=== PATIENT | female | born 1965 | race African-American/Black ===

== ENCOUNTER 2017-12-02 12:20 | Emergency (ER) | payer OTHER ==
[~2017-12-02] VITALS: Ht 144.8 cm; Wt 61.2 kg
[~2017-12-02 12:20] MED LIST: AMBIEN 10 MG TA10 MG PO; ATIVAN2 MG PO; PROAIR HFA8.5 GM IH; RESTORIL7.5 MG PO
[2017-12-02] MEDS ORDERED: COZAAR 50 MG TA50 M2 PO (12:30)
[2017-12-02] MEDS ORDERED: PREDNISONE 20 M20 MG PO (12:43)
[2017-12-02] MEDS ORDERED: TESSALON PERLE100 MG PO (12:43)
[2017-12-02] MEDS ORDERED: CLARITIN10 MG PO (12:43)
[2017-12-02] MEDS ORDERED: PROMETHAZINE V473 ML PO (12:43)
[2017-12-02] MEDS ORDERED: ACETAMINOPHEN-1 EAC1 PO (12:43)
[2017-12-02] MEDS ORDERED: ZPAK PO (12:43)
[2017-12-02 13:14] VITALS: BP 146/94
== END 2017-12-02 13:16 | disposition home or self-care (01) ==
LOC: M.ERS 12:20
DX: J20.9 Acute bronchitis, unspecified (principal); J45.909 Unspecified asthma, uncomplicated; I10 Essential (primary) hypertension; F41.9 Anxiety disorder, unspecified

== ENCOUNTER 2018-02-24 02:34 | Emergency (ER) | payer OTHER ==
[~2018-02-24] VITALS: Ht 147.3 cm; Wt 59.0 kg
[~2018-02-24 02:34] MED LIST changes: +ACETAMINOPHEN-1 EAC1 PO; +CLARITIN10 MG PO; +COZAAR 50 MG TA50 M2 PO; +PREDNISONE 20 M20 MG PO; +PROMETHAZINE V473 ML PO; +TESSALON PERLE100 MG PO; +ZPAK PO
[2018-02-24 02:38] VITALS: BP 190/117
[2018-02-24] MEDS ORDERED: IBUPROFEN 200200 M1 PO (02:43)
[2018-02-24] MEDS ORDERED: AMOXICILLIN 50500 M1 PO (03:09)
[2018-02-24] MEDS ORDERED: ACETAMINOPHEN-1 EAC1 PO (03:09)
== END 2018-02-24 03:16 | disposition home or self-care (01) ==
LOC: M.ERS 02:34
DX: K02.9 Dental caries, unspecified (principal); J45.909 Unspecified asthma, uncomplicated; I10 Essential (primary) hypertension

== ENCOUNTER 2019-03-21 09:44 | Inpatient (IN) | payer OTHER ==
[~2019-03-21] VITALS: Ht 144.8 cm; Wt 54.0 kg
--- NOTE | ~2019-03-21 | PROC ---
[address] [address] PROCEDURE REPORT Name: HARJEET GUAMAN Room: [address] IN M.R.#: [id number] Admission: 03/21/19 Attend Phys: Hilary Manzanares Discharge: Date of : 63 Report #: [id number] THIS REPORT FOR: //name// For GI report, please see the Provation report in Perceptive 7 content. By: 0643Medical Records Staff DIONNA /JAYJAY
[~2019-03-21 09:44] MED LIST changes: +AMOXICILLIN 50500 M1 PO; +COZAAR 50 MG TA50 M1 PO; -COZAAR 50 MG TA50 M2 PO; +IBUPROFEN 200200 M1 PO
[2019-03-21 09:53] VITALS: BP 197/136
[2019-03-21 10:40] LABS: ABSOLUTE EOSINOPHILS 0.2 thou/uL (0.0-0.7); ABSOLUTE LYMPHOCYTES 1.7 thou/uL (0.8-5.3); ABSOLUTE MONOCYTES 0.7 thou/uL (0.0-1.2); ABSOLUTE NEUTROPHILS 3.2 thou/uL (1.6-8.1); BASOPHILS 0.3 %; HEMATOCRIT 45.6 % (37.0-47.0); HEMOGLOBIN 15.2 gm/dL (12.0-15.0); LYMPHOCYTES 28.9 %; MCH 28.5 pg (26.0-34.0); MCHC 33.4 g/dL (28.0-37.0); MCV 85.2 fL (80.0-100.0); MONOCYTES 11.8 %; MPV 9.2 fl. (7.2-11.1); NUCLEATED RBCS 0 /100WBC; PLATELET COUNT* 314 thou/uL (150-400); RBC 5.35 mil/uL (4.20-5.00); RDW-CV 16.6 % (10.5-14.5); WBC 5.8 thou/uL (4.0-11.0)
[2019-03-21 10:46] LABS: CALCIUM 10.4 mg/dL (8.5-10.1); CREATININE 1.2 mg/dL (0.6-1.3); POTASSIUM 3.1 mmol/L (3.5-5.1)
[2019-03-21 10:51] LABS: ALBUMIN 4.8 g/dL (3.4-5.0); TOTAL BILIRUBIN 2.2 mg/dL (<0.1-1.0); TOTAL PROTEIN 9.8 g/dL (6.4-8.2)
[2019-03-21 12:11] LABS: URINE BILIRUBIN NEGATIVE (Negative); URINE BLOOD TRACE (Negative); URINE CLARITY CLEAR; URINE COLOR YELLOW; URINE GLUCOSE-RANDOM NEGATIVE (Negative); URINE KETONES NEGATIVE (Negative); URINE NITRITE-REFLEX NEGATIVE (Negative); URINE PROTEIN NEGATIVE (Negative)
[2019-03-21 12:13] LABS: URINE LEUKOCYTES-REFLEX 2+ (Negative)
[2019-03-21 12:20] LABS: BACTERIA-REFLEX 1-9 Few /HPF (None Seen); CASTS None Seen /LPF (None Seen); CRYSTALS None Seen /LPF (None Seen); MUCUS None Seen strn/LPF (None Seen); SQUAMOUS 4-10 Moderate /LPF (0-3); URINE RBC 0-2 Rare /HPF (0-2); URINE WBC-REFLEX 6-15 Few /HPF (0-5)
--- NOTE | 2019-03-21 16:55 | EKG ---
[place] [address] ELECTROCARDIOGRAM REPORT Name: HARJEET GUAMAN Room: [place] [address] ADM IN [facility]#: [id number] Admission: 03/21/19 Attend Phys: Hilary Manzanares Discharge: Date of : 63 Report #: [id number] THIS REPORT FOR: //name// ED Test Date: 2019-03-21 Test Time: 09:51:48 Pat Name: HARJEET GUAMAN Department: Room: [facility] Gender: F Hydrographer: [place] : 1965 Requested By: Riley Marcial Order Number: [id number] MD: Larry Partida Measurements Intervals [place] Rate: 115 P: 56 [place]: 114 QRS: 9 QRSD: 77 T: 47 QT: 322 QTc: 446 Interpretive Statements Sinus tachycardia Probable left atrial enlargement No previous ECG available for comparison Electronically Signed On 03-21-2019 16:55:33 CDT by Larry Partida [email or web address] <ELECTRONICALLY SIGNED> By: Larry Partida MD, [facility] 03/21/19 1655 0951 0 Larry Partida MD, FACC /EPI
[2019-03-21 22:30] VITALS: BP 186/116
[2019-03-21 22:45] VITALS: BP 208/105; BP 210/109
[2019-03-22] VITALS (11 sets, daily range): BP systolic 178–231; BP diastolic 100–130
[2019-03-22] MEDS ORDERED: SINGULAIR 10 MG10 MG PO (04:19)
[2019-03-22] MEDS ORDERED: ASMANEX110 MCG SPRAY (04:23)
[2019-03-22] MEDS ORDERED: TIZANIDINE HCL4 M1 PO (04:24)
[2019-03-22] MEDS ORDERED: LUNESTA3 MG PO (04:32)
[2019-03-22] MEDS ORDERED: BREO ELLIPTA 11 EACH INH (04:33)
[2019-03-22] MEDS ORDERED: BENICAR40 MG PO (04:34)
[2019-03-22 12:33] LABS: HEMOGLOBIN 13.3 gm/dL (12.0-15.0); MCH 28.6 pg (26.0-34.0); MCHC 33.2 g/dL (28.0-37.0); MCV 86.1 fL (80.0-100.0); MPV 9.6 fl. (7.2-11.1); NUCLEATED RBCS 0 /100WBC; RBC 4.64 mil/uL (4.20-5.00); RDW-CV 16.2 % (10.5-14.5); WBC 6.2 thou/uL (4.0-11.0)
[2019-03-22 12:34] LABS: PLATELET COUNT* 239 thou/uL (150-400)
[2019-03-22 12:40] LABS: CALCIUM 9.6 mg/dL (8.5-10.1); CREATININE 1.1 mg/dL (0.6-1.3); POTASSIUM 3.7 mmol/L (3.5-5.1)
[2019-03-22 12:54] LABS: ALBUMIN 3.7 g/dL (3.4-5.0); TOTAL BILIRUBIN 2.4 mg/dL (<0.1-1.0); TOTAL PROTEIN 7.6 g/dL (6.4-8.2)
[2019-03-22 13:18] LABS: ABSOLUTE EOSINOPHILS 0.6 thou/uL (0.0-0.7); ABSOLUTE LYMPHOCYTES 2.2 thou/uL (0.8-5.3); ABSOLUTE MONOCYTES 0.5 thou/uL (0.0-1.2); PLATELET ESTIMATE ADEQUATE
--- NOTE | 2019-03-22 13:44 | 2DMMODE ---
[place] [address] 2 D/M-MODE ECHOCARDIOGRAM Name: GUAMANHARJEETKEO Room: [address] ADM IN [facility]#: [id number] Admission: 03/21/19 Attend Phys: Jair Cottrell Discharge: Date of : 63 Date of Service: 03/22/19 1343 Report #: [id number] THIS REPORT FOR: //name// APPROVED REPORT Study performed: 03/22/2019 10:34:41 EXAM: Comprehensive 2D, Doppler, and color-flow Echocardiogram Patient Location: In-Patient Room #: 206 Status: routine BSA: 1.44 HR: 54 bpm BP: 192/113 mmHg Rhythm: NSR Other Information Study Quality: Good Indications Elevated Troponin Hypertension/HDD 2D Dimensions IVSd: 12.32 (7-11mm) LVOT Diam: 19.07 (18-24mm) LVDd: 40.59 mm PWd: 10.82 (7-11mm) Ascending Ao: 33.64 (22-36mm) LVDs: 24.12 (25-40mm) Aortic Root: 28.51 mm Volumes Left Atrial Volume (Systole) LA ESV Index: 26.40 mL/m2 Aortic Valve AoV Peak Hema.: 1.31 m/s AO Peak Gr.: 6.84 mmHg LVOT Max P.12 mmHg AO Mean Gr.: 3.26 mmHg LVOT Mean P.42 mmHg LVOT Max V: 0.88 m/s AO V2 VTI: 23.24 cm LVOT Mean V: 0.54 m/s DARNELL (VTI): 2.26 cm2 LVOT V1 VTI: 18.39 cm Mitral Valve E/A Ratio: 0.61 MV Decel. Time: 256.92 [place] [address] 2 D/M-MODE ECHOCARDIOGRAM Name: HARJEET GUAMAN Room: [address] IN ..#: [id number] Admission: 03/21/19 Attend Phys: Jair Cottrell Discharge: Date of : 63 Date of Service: 03/22/19 1343 Report #: [id number] E Max Hema.: 0.64 m/s MV PHT: 74.51 ms MVA (PHT): 2.95 cm2 TDI E/Lateral E': 8.00 E/Medial E': 8.00 Medial E' Hema.: 0.08 m/s Lateral E' Hema.: 0.08 m/s Pulmonary Valve PV Peak Hema.: 0.76 m/s PV Peak Gr.: 2.30 mmHg Tricuspid Valve RAP Estimate: 5.00 mmHg TR Peak Gr.: 21.80 mmHg RVSP: 26.00 mmHg PA Pressure: 26.00 mmHg Left Ventricle The left ventricle is normal size. There is normal LV segmental wall motion. Moderate concentric left ventricular hypertrophy. Left ventricular systolic function is normal. The left ventricular ejection fraction is within the normal range. LVEF is 60%. Grade I - abnormal relaxation pattern. Right Ventricle The right ventricle is normal size. The right ventricular systolic function is normal. Atria The left atrium size is normal. The right atrium size is normal. Aortic Valve The aortic valve is normal in structure. No aortic regurgitation is present. There is no aortic valvular stenosis. Mitral Valve The mitral valve is normal in structure. Mild mitral regurgitation. No evidence of mitral valve stenosis. Tricuspid Valve The tricuspid valve is normal in structure. Trace tricuspid regurgitation. No pulmonary hypertension. Pulmonic Valve The pulmonary valve is normal in structure[place] [address] 2 D/M-MODE ECHOCARDIOGRAM Name: HARJEET GUAMAN Room: [address]#: [id number] Admission: 03/21/19 Attend Phys: Jair Cottrell Discharge: Date of : 63 Date of Service: 03/22/19 1343 Report #: [id number] regurgitation. Great Vessels The aortic root is normal in size. IVC is normal in size and collapses >50% with inspiration. Pericardium There is no pericardial effusion. <Conclusion> The left ventricle is normal size. Moderate concentric left ventricular hypertrophy. Left ventricular systolic function is normal. The left ventricular ejection fraction is within the normal range. LVEF is 60%. Grade I - abnormal relaxation pattern. The right ventricle is normal size. The left atrium size is normal. The aortic valve is normal in structure. The mitral valve is normal in structure. Mild mitral regurgitation. The tricuspid valve is normal in structure. IVC is normal in size and collapses >50% with inspiration. There is no pericardial effusion. There is normal LV segmental wall motion. <ELECTRONICALLY SIGNED> By: Robert Jang MD, FACC 03/22/19 1343 1343 1343 Robert Jang MD, FACC /INF
[2019-03-22 14:38] LABS: INR 1.1; PROTIME 11.7 Seconds (9.20-11.50)
[2019-03-22 22:06] LABS: IgG 1310 mg/dL (700-1600); IgM 138 mg/dL (26-217)
[2019-03-23] VITALS (8 sets, daily range): BP systolic 104–211; BP diastolic 52–130
[2019-03-23 15:18] LABS: ABSOLUTE BASOPHILS 0.1 thou/uL (0.0-0.2); ABSOLUTE LYMPHOCYTES 1.4 thou/uL (0.8-5.3); ABSOLUTE MONOCYTES 0.3 thou/uL (0.0-1.2); ABSOLUTE NEUTROPHILS 5.2 thou/uL (1.6-8.1); BASOPHILS 1.1 %; EOSINOPHILS 0.1 %; HEMATOCRIT 42.3 % (37.0-47.0); HEMOGLOBIN 14.1 gm/dL (12.0-15.0); LYMPHOCYTES 19.5 %; MCH 28.6 pg (26.0-34.0); MCHC 33.5 g/dL (28.0-37.0); MCV 85.5 fL (80.0-100.0); MONOCYTES 3.7 %; MPV 8.7 fl. (7.2-11.1); NUCLEATED RBCS 0 /100WBC; PLATELET COUNT* 292 thou/uL (150-400); POLYS 75.6 %; RBC 4.94 mil/uL (4.20-5.00); RDW-CV 15.8 % (10.5-14.5); WBC 6.9 thou/uL (4.0-11.0)
[2019-03-23 15:23] LABS: CALCIUM 9.8 mg/dL (8.5-10.1); CREATININE 1.5 mg/dL (0.6-1.3); INR 1.2
[2019-03-23 15:33] LABS: TOTAL BILIRUBIN 2.5 mg/dL (<0.1-1.0)
[2019-03-23 23:05] LABS: HEPATITIS B SURFACE AG Negative (Negative)
[2019-03-24] VITALS: BP 105/63
[2019-03-24 04:19] LABS: ABSOLUTE BASOPHILS 0.1 thou/uL (0.0-0.2); ABSOLUTE EOSINOPHILS 0.2 thou/uL (0.0-0.7); ABSOLUTE MONOCYTES 0.8 thou/uL (0.0-1.2); ABSOLUTE NEUTROPHILS 4.6 thou/uL (1.6-8.1); BASOPHILS 0.7 %; EOSINOPHILS 2.2 %; HEMATOCRIT 40.2 % (37.0-47.0); HEMOGLOBIN 13.4 gm/dL (12.0-15.0); LYMPHOCYTES 26.7 %; MCH 28.4 pg (26.0-34.0); MCHC 33.3 g/dL (28.0-37.0); MCV 85.3 fL (80.0-100.0); MONOCYTES 10.3 %; MPV 8.5 fl. (7.2-11.1); NUCLEATED RBCS 0 /100WBC; PLATELET COUNT* 292 thou/uL (150-400); POLYS 60.1 %; RBC 4.72 mil/uL (4.20-5.00); RDW-CV 16.1 % (10.5-14.5); WBC 7.7 thou/uL (4.0-11.0)
[2019-03-24 04:51] LABS: ALBUMIN 3.7 g/dL (3.4-5.0); CALCIUM 9.3 mg/dL (8.5-10.1); CREATININE 1.8 mg/dL (0.6-1.3); POTASSIUM 3.8 mmol/L (3.5-5.1); TOTAL BILIRUBIN 1.8 mg/dL (<0.1-1.0); TOTAL PROTEIN 7.5 g/dL (6.4-8.2)
[2019-03-24 05:00] VITALS: BP 139/86
[2019-03-24 07:49] VITALS: BP 101/59
[2019-03-24 11:30] VITALS: BP 117/69
[2019-03-24 16:00] VITALS: BP 111/57
[2019-03-24 20:10] VITALS: BP 146/85
[2019-03-25 05:13] LABS: ABSOLUTE BASOPHILS 0.1 thou/uL (0.0-0.2); ABSOLUTE EOSINOPHILS 0.5 thou/uL (0.0-0.7); ABSOLUTE LYMPHOCYTES 2.4 thou/uL (0.8-5.3); ABSOLUTE MONOCYTES 0.8 thou/uL (0.0-1.2); ABSOLUTE NEUTROPHILS 4.2 thou/uL (1.6-8.1); EOSINOPHILS 5.7 %; HEMATOCRIT 39.8 % (37.0-47.0); HEMOGLOBIN 13.1 gm/dL (12.0-15.0); LYMPHOCYTES 30.4 %; MCH 28.2 pg (26.0-34.0); MCHC 33.1 g/dL (28.0-37.0); MCV 85.2 fL (80.0-100.0); MONOCYTES 10.1 %; NUCLEATED RBCS 0 /100WBC; PLATELET COUNT* 282 thou/uL (150-400); POLYS 52.8 %; RBC 4.66 mil/uL (4.20-5.00); RDW-CV 15.6 % (10.5-14.5); WBC 7.9 thou/uL (4.0-11.0)
[2019-03-25 05:38] LABS: ALBUMIN 3.6 g/dL (3.4-5.0); CALCIUM 8.9 mg/dL (8.5-10.1); CREATININE 1.3 mg/dL (0.6-1.3); MAGNESIUM 2.1 mg/dL (1.8-2.4); PHOSPHORUS* 3.4 mg/dL (2.5-4.9); POTASSIUM 3.6 mmol/L (3.5-5.1)
[2019-03-25 05:53] LABS: ALBUMIN 3.6 g/dL (3.4-5.0); CALCIUM 8.9 mg/dL (8.5-10.1); CREATININE 1.3 mg/dL (0.6-1.3); POTASSIUM 3.2 mmol/L (3.5-5.1); TOTAL BILIRUBIN 1.3 mg/dL (<0.1-1.0); TOTAL PROTEIN 7.1 g/dL (6.4-8.2)
[2019-03-25 08:00] VITALS: BP 149/124
[2019-03-25 16:22] VITALS: BP 170/98
[2019-03-25 20:38] VITALS: BP 134/84
[2019-03-25 21:05] LABS: ANA INTERPRETATION Negative (())
[2019-03-26 03:18] LABS: HEMATOCRIT 38.5 % (37.0-47.0); HEMOGLOBIN 12.7 gm/dL (12.0-15.0); MCH 28.6 pg (26.0-34.0); MCHC 33.1 g/dL (28.0-37.0); MCV 86.5 fL (80.0-100.0); MPV 8.7 fl. (7.2-11.1); RBC 4.44 mil/uL (4.20-5.00); RDW-CV 15.4 % (10.5-14.5); WBC 7.2 thou/uL (4.0-11.0)
[2019-03-26 03:37] LABS: ALBUMIN 3.1 g/dL (3.4-5.0); CALCIUM 8.5 mg/dL (8.5-10.1); MAGNESIUM 1.8 mg/dL (1.8-2.4); PHOSPHORUS* 3.4 mg/dL (2.5-4.9); POTASSIUM 3.7 mmol/L (3.5-5.1); TOTAL BILIRUBIN 0.9 mg/dL (<0.1-1.0); TOTAL PROTEIN 6.5 g/dL (6.4-8.2)
[2019-03-26 07:30] VITALS: BP 154/96
[2019-03-26 16:00] VITALS: BP 152/88
--- NOTE | 2019-03-26 17:06 | PATH ---
[facility] [address] [place] [address] PATHOLOGY RPT PROCEDURE Name: MERLYN GUAMAN Room: [address] IN .R.#: [id number] Admission: 03/21/19 Date of : 63 Discharge: Report #: [id number] Path Case #: [id number] [facility] Accession Number: [id number] . 01 Material submitted: . stomach - ANTRAL BIOPSY . 01 Clinical history: . None provided . 02 Diagnosis: Antral biopsy: - Mild chronic antral gastritis, suggesting reactive gastropathy (chemical gastritis), negative for Helicobacter pylori organisms and dysplasia. . (HELDER:mml; 03/26/2019) QL 03/26/2019 1151 Local . 02 Comment: Special stain: H. pylori immuno. . (HELDER:mml; 03/26/2019) . 02 Electronically signed: . Alli Christine MD, Pathologist NPI- [id number] . 01 Gross description: . The specimen is received in formalin, labeled "Merlyn Guaman, antral biopsy for H. pylori, duodenal ulcer and duodenitis". Received are two segments of pale bassett soft tissue ranging in size from 0.3 to 0.4 cm in maximum dimensions. The specimen is submitted entirely in cassette A1. (CAA; 03/25/2019) QAC/QAC 03/25/2019 1156 Local . 02 Pathologist provided ICD-10: K29.50 . 02 CPT . 918015, B80844 Specimen Comment: A courtesy copy of this report has been sent to [phone] Specimen Comment: [phone], Specimen Comment: Report sent to , and Performed at: [address] [id number] MD Michele King MD Phone: [phone] [place] [address] PATHOLOGY RPT PROCEDURE Name: MERLYN GUAMAN Room: [address] IN ..#: [id number] Admission: 03/21/19 Date of : 63 Discharge: Report #: [id number] Path Case #: [id number] Performed at: 02 [facility] Kemi [facility] [address], [place] [id number] MD Alli Christine MD Phone: [phone]
[2019-03-26 19:43] VITALS: BP 159/86
[2019-03-26 20:04] VITALS: BP 130/55
[2019-03-27] VITALS: BP 148/88
[2019-03-27 04:00] VITALS: BP 135/88
[2019-03-27 05:10] LABS: HEMATOCRIT 40.3 % (37.0-47.0); HEMOGLOBIN 13.4 gm/dL (12.0-15.0); MCH 28.7 pg (26.0-34.0); MCHC 33.3 g/dL (28.0-37.0); MCV 86.1 fL (80.0-100.0); MPV 9.1 fl. (7.2-11.1); RBC 4.68 mil/uL (4.20-5.00); RDW-CV 15.6 % (10.5-14.5); WBC 11.6 thou/uL (4.0-11.0)
[2019-03-27 06:10] LABS: ALBUMIN 3.3 g/dL (3.4-5.0); CALCIUM 8.7 mg/dL (8.5-10.1); MAGNESIUM 1.6 mg/dL (1.8-2.4); POTASSIUM 4.2 mmol/L (3.5-5.1); TOTAL BILIRUBIN 0.9 mg/dL (<0.1-1.0); TOTAL PROTEIN 7.2 g/dL (6.4-8.2)
[2019-03-27 07:30] VITALS: BP 130/83
[2019-03-27] MEDS ORDERED: OXYCODONE HCL 55 MG PO (13:05)
[2019-03-27] MEDS ORDERED: NORVASC 2.5 MG2.5 M1 PO (13:06)
[2019-03-27 13:07] VITALS: BP 130/83
--- NOTE | 2019-03-30 13:09 | CON ---
[address] [address] CONSULTATION Name: HARJEET GUAMAN Room: [address] IN M.R.#: [id number] Admission: 03/21/19 Attend Phys: Hilary Manzanares Discharge: 03/27/19 Date of : 63 Report #: [id number] THIS REPORT FOR: //name// CC: Antonella Cottrell DICTATED BY: Charisse De La Cruz [facility] DATE OF SERVICE: 03/22/2019 Please note at the time of this dictation, the patient was seen and physically examined by myself. REASON FOR CONSULTATION: Elevated LFTs and abdominal pain. HISTORY OF PRESENT ILLNESS: This is a 53-year-old female who presented to the Emergency Room with increasing generalized weakness. She states she has had recurrent nausea now with just about anything that she eats or drinks for the last several weeks. She has had some associated vomiting. She has felt very dizzy and she has also had some abdominal pain. The patient states she has lost 20 pounds since the summer. She had dentures placed all at once, so she was not eating very much, which she attributed to her weight loss. The patient has never seen a aerospace control and warning systems or had any upper or lower scopes done. The patient denies any issues with GERD up until recently that she has noticed some since she has not been feeling well. The patient states that with her emesis, it has just been more bile or anything that she has had to eat or drink. There has been no bright red blood or coffee ground emesis. She states her bowels move once or twice a day, they are soft and formed with no melena or bright red bloody stools noted. ALLERGIES: No known drug allergies. MEDICATIONS: From home, is her Claritin for her allergies. PAST MEDICAL HISTORY: Hypertension and asthma. PAST SURGICAL HISTORY: She had a hysterectomy and did receive a blood transfusion that was several years ago. FAMILY HISTORY: Sister breast cancer, otherwise negative for any other GI cancers. SOCIAL HISTORY: She denies any alcohol use. No tobacco or illegal drug use. She has been [place] [address] CONSULTATION Name: HARJEET GUAMAN Room: [address]#: [id number] Admission: 03/21/19 Attend Phys: Hilary Manzanares Discharge: 03/27/19 Date of : 63 Report #: [id number] REVIEW OF SYSTEMS: Twelve-point review of systems is essentially negative except what is mentioned in the HPI. PHYSICAL EXAMINATION: VITAL SIGNS: Temperature 36.9, pulse 67, respirations 20, blood pressure 214/118. HEART: Regular rate and rhythm. LUNGS: Diminished, but clear. ABDOMEN: Soft, positive bowel sounds in all 4 quadrants with tenderness noted in the upper quadrants, which radiate into her back. LABORATORY DATA: Hemoglobin is 15.2, white count is 5.8, platelets 314. Lipase is 120, potassium on admission was 3.1, GFR was 57, total bilirubin is 2.2, alkaline phosphatase 171, ALT 365, AST is 328. RADIOLOGICAL DATA: CT of the abdomen and pelvis shows a normal CT. CT of the head negative, mild parasinus disease. Chest x-ray negative. IMPRESSION: 1. Elevated LFTs. 2. Abdominal pain. 3. Nausea and vomiting, improved. 4. Gastroesophageal reflux disease, new onset. 5. Hypertensive crisis. 6. Increased troponin. 7. Family history of breast cancer in sister. PLAN: 1. Ultrasound of the abdomen. 2. Labs, acute hepatitis panel, PT, INR, THEODORA, ASMA, AMA and immunoglobulin IgM. 3. We will await Cardiology evaluation and await for above test results to make further recommendations. Thank you for allowing us to participate in this patient's care. Please do not hesitate to call with any questions in regard to this consult. <ELECTRONICALLY SIGNED> By: Daniel Meza DO 03/30/19 1309 1235 1255Daniel Meza DO /nt
--- NOTE | 2019-04-07 14:09 | CON ---
[address] [address] CONSULTATION Name: HARJEET GUAMAN Room: [address] IN ..#: [id number] Admission: 03/21/19 Attend Phys: Hilary Manzanares Discharge: 03/27/19 Date of : 63 Report #: [id number] THIS REPORT FOR: //name// CC: Antonella Cottrell DATE OF SERVICE: 03/24/2019 NEPHROLOGY CONSULTATION CONSULTING PHYSICIAN: Dr. Cottrell. REASON FOR CONSULTATION: Acute kidney injury. HISTORY OF PRESENT ILLNESS: A 53-year-old female admitted with an elevated troponin. She has had some nausea and vomiting going on for about a week or so. Denies any preexisting history of kidney disease. No diarrhea, no NSAIDs and no new medications. She had admission creatinine of 1.2, it jumped up to 1.8 today prompting renal consult. She has been started on some IV fluids and has no complaints. REVIEW OF SYSTEMS: Constitutional, psych, heme, eyes, ENT, respiratory, cardiac, GI, , endocrine all negative except as documented above. PAST MEDICAL HISTORY: Hypertension, asthma. SOCIAL HISTORY: No tobacco. FAMILY HISTORY: No known kidney disease. CURRENT MEDICATIONS: Reviewed. PHYSICAL EXAMINATION: VITAL SIGNS: Blood pressure 101/59, pulse 73, respirations 14, temperature 37.2. GENERAL: No acute distress. EYES: Open. EARS: Externally normal. NECK: Supple. CARDIOVASCULAR: Regular rate. LUNGS: No crackles. ABDOMEN: Soft, nontender. MUSCULOSKELETAL: Nontender. PSYCHIATRIC: Awake, alert. LABORATORY DATA: White cell count 7.7, hemoglobin 13.4, platelets 292[place] [address] CONSULTATION Name: HARJEET GUAMAN Room: [address]#: [id number] Admission: 03/21/19 Attend Phys: Hilary Manzanares Discharge: 03/27/19 Date of : 63 Report #: [id number] 139, potassium 3.8, chloride 101, bicarbonate 27, BUN 20, creatinine 1.8, glucose 91, calcium 9.3, albumin 3.7. ASSESSMENT AND PLAN: 1. Acute kidney injury with admission creatinine of 1.2. Kidney ultrasound showed kidneys of 8.6 and 7.3 cm in size. In 2011, creatinine was 1.1. Hepatitis B surface antigen, hepatitis C antibody were negative. On 03/21/2019, she did receive a 77 mL of IV contrast as part of a CT scan. She is also on losartan. 2. Chronic kidney disease stage 3, based on small kidneys on kidney ultrasound. 3. Hypertension. 4. Group B strep urinary tract infection. PLAN: 1. Discontinue losartan. 2. Continue IV fluids. 3. Hydrochlorothiazide has been discontinued. 4. Defer antibiotics to Internal Medicine Service. 5. THEODORA is pending. 6. Check labs again in the a.m. Thank you for requesting my opinion in the care and management of this patient. <ELECTRONICALLY SIGNED> By: Maggy Daniel MD 04/07/19 1409 1122 1219Abihilary Daniel MD /nt
--- NOTE | 2019-04-09 13:35 | OP ---
[facility] [address] [place] [address] OPERATIVE REPORT Name: HARJEET GUAMAN Room: [address] IN M.R.#: [id number] Admission: 03/21/19 Attend Phys: Hilary Manzanares Discharge: 03/27/19 Date of : 63 Report #: [id number] THIS REPORT FOR: //name// CC: Daniel Cottrell DO DATE OF SERVICE: 03/26/2019 REFERRING PHYSICIAN: Dr. Fransisca Bal and also Dr. Jair Cottrell and Dr. Daniel Meza. PREOPERATIVE DIAGNOSES: Chronic cholecystitis and elevated liver function tests. POSTOPERATIVE DIAGNOSES: Chronic cholecystitis and elevated liver function tests. PROCEDURE: Laparoscopic cholecystectomy and liver biopsy x 4. SURGEON: Mika Addison DO MATH INTERVENTIONIST: Dr. Heidi Chen. ANESTHESIA: General endotracheal. ESTIMATED BLOOD LOSS: Less than 30 mL. COMPLICATIONS: None. DESCRIPTION OF PROCEDURE: After obtaining proper consents and discussing risks and complications with the patient, she was taken to the operating room, laid in the supine position, administered general endotracheal anesthetic. She was then prepped and draped in the usual sterile fashion. A timeout was performed. We confirmed the appropriate patient and procedure. Preoperative antibiotics had been given. SCDs were in place. We then made a small supraumbilical skin incision with a #11 scalpel blade. This was carried down through the skin into the subcutaneous tissue using electrocautery for hemostasis. Once the fascia was encountered, it was incised along the midline, grasped and elevated with Cooper clamps. The peritoneum was then bluntly opened using a hemostat. We then placed 2-0 Vicryl sutures in a [id number] fashion to secure the Akua trocar, which was then inserted and insufflation was begun. Once insufflation was complete, full visual inspection of the anterior abdominal organs was performed. This revealed no gross abnormalities [place] [address] OPERATIVE REPORT Name: HARJEET GUAMAN Room: [address] IN ..#: [id number] Admission: 03/21/19 Attend Phys: Hilary Manzanares Discharge: 03/27/19 Date of : 63 Report #: [id number]. There were also noted to be adhesions of the omentum to the gallbladder. There were no other gross abnormalities at this time. We then placed the patient in reverse Trendelenburg position, rotated her to the left. Three more 5 mm trocars were placed; one in the subxiphoid position, two in the right upper quadrant. We were then able to grasp and elevate the gallbladder and take down the omental adhesions using blunt dissection as well as electrocautery. Once we were able to visualize the entire gallbladder, it was elevated. Catherine's pouch was then grasped and elevated. We could immediately identify the common bile duct as well as the common hepatic duct and we could see the cystic duct coursing through the hepatoduodenal ligament. I then stripped the hepatoduodenal ligament down using blunt dissection as well as electrocautery until we could identify the cystic duct and cystic artery. We obtained a critical view of safety with two structures entering the gallbladder and only 2 structures, we could also visualize the common hepatic duct and common bile duct at this time. Calot's triangle was identified. We then dissected the cystic duct free enough to place clips proximally and distally and then the cystic artery was also similarly dissected free. It was clipped proximally and distally and then both were divided. We then removed the gallbladder from the liver bed using electrocautery. Once this was complete, the cystic duct and cystic artery stumps and liver bed were all checked for any leak or bleeding, there was none identified. We then placed the gallbladder into an Endopouch. We then performed 4 liver biopsies using the spring loaded liver biopsy core needle. This was placed through the abdominal wall and down into the liver and four biopsies were taken. Electrocautery was then used to maintain hemostasis in the areas where the biopsies were obtained. The specimens were then sent to pathology for permanent section. We then again checked the gallbladder fossa to assure there was no bleeding or leak. Again, the cystic duct and cystic artery stumps were without leak or bleeding. We then removed the gallbladder through the umbilical incision. The insufflation was stopped, all air was released. Trocars were removed. The umbilical fascia was then closed using the 2 previously placed 0 Vicryl sutures plus an additional 0 Vicryl suture. Skin incisions were then closed using 4-0 Monocryl subcuticular stitches. Mastisol, Steri-Strips, sterile OpSite and pressure dressings were placed. The patient was awakened in the operating room and transported to recovery room in stable condition. <ELECTRONICALLY SIGNED> By: Mika Addison DO 04/09/19 1335 1130 1210Adadominik Addison DO /nt
== END 2019-03-27 13:30 | disposition home or self-care (01) | DRG 417 ==
LOC: M.ERS 09:44 → M.2W 12:13 → M.TBA-ER 12:13 → M.2W 22:45 → M.ORTHSURG 03-25 19:00
PROVIDERS: Emergency Medicine; Family Medicine; Internal Medicine Gastroenterology; ADMIT Internal Medicine
PROC: 0DB78ZX Excision of Stomach, Pylorus, Via Natural or Artificial Opening Endoscopic, Diagnostic (ICD-10-PCS; principal; 2019-03-24)
PROC: 0FT44ZZ Resection of Gallbladder, Percutaneous Endoscopic Approach (ICD-10-PCS; 2019-03-26)
PROC: 0FB04ZX Excision of Liver, Percutaneous Endoscopic Approach, Diagnostic (ICD-10-PCS; 2019-03-26)
DX: K81.0 Acute cholecystitis (principal); N17.0 Acute kidney failure with tubular necrosis; N39.0 Urinary tract infection, site not specified; K26.9 Duodenal ulcer, unspecified as acute or chronic, without hemorrhage or perforation; J45.909 Unspecified asthma, uncomplicated; I16.0 Hypertensive urgency; K21.9 Gastro-esophageal reflux disease without esophagitis; I12.9 Hypertensive chronic kidney disease with stage 1 through stage 4 chronic kidney disease, or unspecified chronic kidney disease; N18.3 Chronic kidney disease, stage 3 (moderate); B95.1 Streptococcus, group B, as the cause of diseases classified elsewhere; R74.0 Nonspecific elevation of levels of transaminase and lactic acid dehydrogenase [LDH]; K29.50 Unspecified chronic gastritis without bleeding; E80.6 Other disorders of bilirubin metabolism; K44.9 Diaphragmatic hernia without obstruction or gangrene; K31.9 Disease of stomach and duodenum, unspecified; K59.00 Constipation, unspecified; Z79.899 Other long term (current) drug therapy; Z82.49 Family history of ischemic heart disease and other diseases of the circulatory system; Z90.710 Acquired absence of both cervix and uterus; Z80.3 Family history of malignant neoplasm of breast

== ENCOUNTER 2019-04-17 10:26 | Inpatient (IN) | payer OTHER ==
[~2019-04-17] VITALS: Ht 144.8 cm; Wt 59.9 kg
[~2019-04-17 10:26] MED LIST changes: +ASMANEX110 MCG SPRAY; +BENICAR40 MG PO; +BREO ELLIPTA 11 EACH INH; +LUNESTA3 MG PO; +NORVASC 2.5 MG2.5 M1 PO; +OXYCODONE HCL 55 MG PO; +SINGULAIR 10 MG10 MG PO; +TIZANIDINE HCL4 M1 PO
[2019-04-17 10:32] VITALS: BP 123/56
[2019-04-17 11:12] LABS: ABSOLUTE BASOPHILS 0.1 thou/uL (0.0-0.2); ABSOLUTE LYMPHOCYTES 1.5 thou/uL (0.8-5.3); ABSOLUTE MONOCYTES 0.6 thou/uL (0.0-1.2); ABSOLUTE NEUTROPHILS 7.5 thou/uL (1.6-8.1); BASOPHILS 0.7 %; EOSINOPHILS 0.3 %; HEMATOCRIT 42.2 % (37.0-47.0); HEMOGLOBIN 14.4 gm/dL (12.0-15.0); LYMPHOCYTES 15.5 %; MCH 28.8 pg (26.0-34.0); MCHC 34.1 g/dL (28.0-37.0); MCV 84.5 fL (80.0-100.0); MPV 8.4 fl. (7.2-11.1); NUCLEATED RBCS 0 /100WBC; PLATELET COUNT* 418 thou/uL (150-400); POLYS 77.5 %; RBC 4.99 mil/uL (4.20-5.00); WBC 9.7 thou/uL (4.0-11.0)
[2019-04-17 11:23] LABS: CALCIUM 9.7 mg/dL (8.5-10.1); CREATININE 1.9 mg/dL (0.6-1.3); POTASSIUM 3.4 mmol/L (3.5-5.1)
[2019-04-17 11:27] LABS: ALBUMIN 4.3 g/dL (3.4-5.0); TOTAL BILIRUBIN 1.4 mg/dL (<0.1-1.0)
[2019-04-17 13:25] LABS: URINE BILIRUBIN NEGATIVE (Negative); URINE BLOOD TRACE (Negative); URINE CLARITY CLEAR; URINE COLOR YELLOW; URINE GLUCOSE-RANDOM NEGATIVE (Negative); URINE KETONES NEGATIVE (Negative); URINE LEUKOCYTES-REFLEX NEGATIVE (Negative); URINE NITRITE-REFLEX NEGATIVE (Negative); URINE PROTEIN TRACE (Negative); URINE SPECIFIC GRAVITY <= 1.005 (1.005-1.030)
[2019-04-17 14:02] LABS: AMP/METHAMP Negative (Negative); BARBITURATES Negative (Negative); BENZODIAZEPINES Negative (Negative); COCAINE Negative (Negative); METHADONE Negative (Negative); OPIATES Negative (Negative); PCP Negative (Negative); THC Negative (Negative)
[2019-04-17 14:05] VITALS: BP 126/67
--- NOTE | 2019-04-17 15:46 | EKG ---
[place] [address] ELECTROCARDIOGRAM REPORT Name: GUAMANHARJEET Room: [address] ADM IN ..#: [id number] Admission: 04/17/19 Attend Phys: Joaquim Rashid MD Discharge: Date of : 63 Report #: [id number] THIS REPORT FOR: //name// [facility] ED Test Date: 2019-04-17 Test Time: 10:48:18 Pat Name: HARJEET GUAMAN Department: Room: [facility] Gender: F Undercollar Baster: : 1965 Requested By: Jordon Hager Order Number: [id number] MD: Robert Jang Measurements Intervals [place] Rate: 144 P: 68 IA: 105 QRS: 41 QRSD: 73 T: 7 QT: 296 QTc: 458 Interpretive Statements Sinus tachycardia Consider left ventricular hypertrophy Baseline wander in lead(s) V6 Compared to ECG 03/21/2019 09:51:48 No significant changes Electronically Signed On 04-17-2019 15:46:49 FILTROSE CRUSHER by Robert Jang [email or web address] <ELECTRONICALLY SIGNED> By: Robert Jang MD, [facility] 04/17/19 1546 1048 1048 Robert Jang MD, [facility] /EPI
--- NOTE | 2019-04-17 16:20 | NUR ---
PATIENT ALERT AND ORIENTED X4. PATIENT AMBULATING WITH STAND BY ASSISTANCE IN ROOM. ALL SAFETY MEASURES MAINTAINED. PATIENT REPORTED CHEST PAIN. PULSE 165. DR. MARTINEZ NOTIFIED. NEW ORDERS RECEIVED AND VERIFIED WITH READ BACK.
[2019-04-17 16:27] VITALS: BP 132/85
[2019-04-17 17:53] VITALS: BP 159/95
--- NOTE | 2019-04-17 18:19 | NUR ---
VSS, ASSUMED CARE OF PT FROM 3W RN, PT VITALS WERE TAKEN PT IS TRACING ST ON THE MONITOR, PT STATES PAIN IN BACK. PT IS UP AD JORDAN, ON RA, HER GOAL IS TO LOWER HR/PAIN, IV FUIDS ARE GOING IN, WILL FOLLOW WITH PLAN OF CARE,
[2019-04-17 20:10] VITALS: BP 148/92
[2019-04-18] VITALS (7 sets, daily range): BP systolic 127–196; BP diastolic 81–101
[2019-04-18 04:05] LABS: ABSOLUTE BASOPHILS 0.1 thou/uL (0.0-0.2); ABSOLUTE LYMPHOCYTES 1.9 thou/uL (0.8-5.3); ABSOLUTE MONOCYTES 1.1 thou/uL (0.0-1.2); ABSOLUTE NEUTROPHILS 6.9 thou/uL (1.6-8.1); BASOPHILS 0.8 %; EOSINOPHILS 0.3 %; HEMATOCRIT 40.5 % (37.0-47.0); HEMOGLOBIN 13.3 gm/dL (12.0-15.0); LYMPHOCYTES 19.4 %; MCH 28.2 pg (26.0-34.0); MCV 85.5 fL (80.0-100.0); MONOCYTES 10.5 %; NUCLEATED RBCS 0 /100WBC; PLATELET COUNT* 369 thou/uL (150-400); RBC 4.73 mil/uL (4.20-5.00); RDW-CV 16.4 % (10.5-14.5); WBC 10.1 thou/uL (4.0-11.0)
[2019-04-18 04:18] LABS: CALCIUM 8.9 mg/dL (8.5-10.1); CREATININE 1.2 mg/dL (0.6-1.3); POTASSIUM 3.7 mmol/L (3.5-5.1)
[2019-04-18 04:30] LABS: ALBUMIN 3.9 g/dL (3.4-5.0); DIRECT BILIRUBIN 0.8 mg/dL (<0.1-0.3); TOTAL BILIRUBIN 1.4 mg/dL (<0.1-1.0); TOTAL PROTEIN 7.4 g/dL (6.4-8.2)
--- NOTE | 2019-04-18 07:43 | NUR ---
PT CARE ASSUMED AT 1930. SAT MAINTAINED IN RA. ALERT AND ORIENTED X4. PT RUNNING ST ON THE MONITOR. C/O PAIN, MEDICATION GIVEN PER EMAR. ELEVATED BP, MEDICATION GIVEN PER EMAR. CALL LIGHT WITHIN REACH AND BED IN LOW POSITION. HOURLY ROUNDING DONE FOR PT SAFETY.
--- NOTE | 2019-04-18 10:29 | EKG ---
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: : 1965 Requested By: Joaquim Rashid Order Number: [id number] Reading MD: Robert Jang Measurements Intervals [place] Rate: 127 P: 65 SC: 108 QRS: 27 QRSD: 70 T: -20 QT: 318 QTc: 463 Interpretive Statements Sinus tachycardia Consider left ventricular hypertrophy Compared to ECG 04/17/2019 10:48:18 No significant changes Electronically Signed On 04-18-2019 10:29:25 HIGH LIGHTER by Robert Jang [email or web address] <ELECTRONICALLY SIGNED> By: Robert Jang MD, [facility] 04/18/19 1029 29 29 Robert Jang MD, FAC /EPI
--- NOTE | 2019-04-18 10:32 | EKG ---
[place] [address] ELECTROCARDIOGRAM REPORT Name: HARJEET GUAMAN Room: [address] ADM IN M.R.#: [id number] Admission: 04/17/19 Attend Phys: Joaquim Rashid MD Discharge: Date of : 63 Report #: [id number] THIS REPORT FOR: //name// [facility] Test Date: 2019-04-18 Test Time: 01:52:42 Pat Name: HARJEET GUAMAN Department: Room: [address] Gender: F Construction Flagger: [id number] : 1965 Requested By: Joaquim Rashid Order Number: [id number] Reading MD: Robert Jang Measurements Intervals [place] Rate: 118 P: 71 DC: 114 QRS: 43 QRSD: 68 T: 41 QT: 341 QTc: 478 Interpretive Statements Sinus tachycardia Probable left atrial enlargement Anteroseptal infarct, age indeterminate posssible Compared to ECG 04/17/2019 10:48:18 Myocardial infarct finding now present Electronically Signed On 04-18-2019 10:32:23 FEATHER STITCHER by Robert Jang [email or web address] <ELECTRONICALLY SIGNED> By: Robert Jang MD, FAC 04/18/19 1032 015 1 Robert Jang MD, [facility] /EPI
--- NOTE | 2019-04-18 11:26 | NUR ---
Pt is A&O. Known to this CM from previous hospital stay. Resides at home with and kids. Independent. No DME. No hx of HH or SNF. Goal is home at in. Following.
--- NOTE | 2019-04-18 15:35 | CARDNUC ---
[place] [address] CARDIAC NUCLEAR IMAGING REPORT Name: GUAMANJUAN MANUEL FERGUSONA Room: [address] IN [facility]#: [id number] Admission: 04/17/19 Attend Phys: Joaquim Rashid, Discharge: Date of : 63 Date of Service: 04/18/19 1534 Report #: [id number] THIS REPORT FOR: //name// APPROVED REPORT Imaging Protocol: Rest Tc-99m/Stress Tc-99m 1 day Study performed: 04/18/2019 09:16:00 Indication: Chest pain, Elevated heart rate Patient Location: In-Patient Room #: [facility] Stress Tech: Laisha Jaramillo Stress Nurse: Asya Baker RN NM Tech:ISAIHA Marques Ht: 4 ft 9 in Wt: 122 lbs BSA: 1.46 m2 HR: 122 bpm BP: 155/90 mmHg BMI: 26.39 Rhythm: NSR Medical History Medications: Losartan, Amlodipine, Carvedilol Allergies: No known drug allergies Cardiac Risk Factors: FHX of CAD, Age, HTN Resting Data Rest SPECT myocardial perfusion imaging was performed in supine position 30 minutes following the intravenous injection of 11.4 mCi of Tc-99m Sestamibi. Time of rest injection: 1134 Date: 04/18/2019 The images were gated to evaluate regional wall motion and calculate left ventricular ejection fraction. Administration Route: IV Administration Site: Left AC Pharmacologic Stress Pharmacologic stress test was performed by injecting Regadenoson 0.4 mg IV push over 10-15 seconds immediately followed by the intravenous injection of 33.4 mCi of Tc-99m Sestamibi. Time of stress injection: 1340 Date: 04/18/2019 Administration Route: IV Administration Site: Left AC Gated Stress SPECT was performed 40 minutes after stress injection. The images were gated to evaluate regional [place] [address] CARDIAC NUCLEAR IMAGING REPORT Name: GUAMAN,TINA Room: [address] IN [facility]#: [id number] Admission: 04/17/19 Attend Phys: Joaquim Rashid, Discharge: Date of : 63 Date of Service: 04/18/19 1534 Report #: [id number] left ventricular ejection fraction. Prone imaging was performed. Stress Test Details Stress Test: Pharmacologic stress testing performed using 0.4 mg of regadenoson per 5 mL given IV over 10 seconds. HR Max Heart Rate (APMHR): 166 bpm Resting HR: 122 bpm Target HR (85% APMHR): 141 bpm Max HR Achieved: 164 bpm % of APMHR: 98 Recovery HR: 138 bpm HR response to stress: Normal HR response to stress BP Resting BP: 155/90 mmHg Max BP: 140/81 mmHg Recovery BP: 158/96 mmHg BP response to stress: 3 ECG Resting ECG: Sinus Rhythm Stress ECG: Sinus Tachycardia ST Change: None Arrhythmia: None Recovery ECG: Sinus Rhythm Recovery ST Change: None Recovery Arrhythmia: None Clinical Reason for Termination: Completed protocol Stress Symptoms: None The patient tolerated Lexiscan infusion without significant cardiac symptoms. Stress ECG Conclusion The baseline 12-lead EKG shows sinus rhythm without significant ST or T wave abnormality. EKGs obtained during and post exercise showed sinus rhythm and sinus tachycardia with no significant ST or T wave changes when compared to baseline. There were no stress-induced arrhythmias. Study Quality Study: Good Artifact: [place] [address] CARDIAC NUCLEAR IMAGING REPORT Name: HARJEET GUAMAN Room: [address]#: [id number] Admission: 04/17/19 Attend Phys: Joaquim Rashid, Discharge: Date of : 63 Date of Service: 04/18/19 1534 Report #: [id number] At rest, the left ventricular ejection fraction was 79%.. Post stress, the left ventricular ejection was 83%.. TID = 1.14. Perfusion Perfusion images at rest and post Lexiscan stress show uniform uptake of the radioisotope throughout the myocardium without defect. Wall Motion Normal left ventricular wall motion. Nuclear Conclusion ECG Findings: negative for ischemia Clinical Findings: negative for ischemia Nuclear Findings: negative for ischemia Exercise Capacity: not assessed Left Ventricular Function: normal Risk Study: low Myocardial perfusion images show no defect to suggest infarct or ischemia. Left ventricular systolic function appears normal on gated studies. This is a low risk study. <Conclusion> The baseline 12-lead EKG shows sinus rhythm without significant ST or T wave abnormality. EKGs obtained during and post exercise showed sinus rhythm and sinus tachycardia with no significant ST or T wave changes when compared to baseline. There were no stress-induced arrhythmias. <ELECTRONICALLY SIGNED> By: Larry Partida MD, FACC 04/18/19 1534 1534 1534 Larry Partida MD, FACC /INF
[2019-04-19] VITALS: BP 153/86
[2019-04-19 04:00] VITALS: BP 158/95
[2019-04-19 04:59] LABS: ABSOLUTE BASOPHILS 0.1 thou/uL (0.0-0.2); ABSOLUTE EOSINOPHILS 0.1 thou/uL (0.0-0.7); ABSOLUTE LYMPHOCYTES 2.6 thou/uL (0.8-5.3); ABSOLUTE MONOCYTES 0.6 thou/uL (0.0-1.2); BASOPHILS 1.1 %; EOSINOPHILS 1.4 %; HEMATOCRIT 38.8 % (37.0-47.0); HEMOGLOBIN 12.6 gm/dL (12.0-15.0); LYMPHOCYTES 35.2 %; MCH 28.3 pg (26.0-34.0); MCHC 32.5 g/dL (28.0-37.0); MCV 87.1 fL (80.0-100.0); MONOCYTES 8.4 %; MPV 8.9 fl. (7.2-11.1); NUCLEATED RBCS 0 /100WBC; POLYS 53.9 %; RBC 4.46 mil/uL (4.20-5.00); RDW-CV 16.2 % (10.5-14.5); WBC 7.4 thou/uL (4.0-11.0)
[2019-04-19 05:05] LABS: PLATELET COUNT* 286 thou/uL (150-400)
[2019-04-19 05:25] LABS: ALBUMIN 3.5 g/dL (3.4-5.0); CALCIUM 9.1 mg/dL (8.5-10.1); POTASSIUM 3.6 mmol/L (3.5-5.1); TOTAL BILIRUBIN 1.5 mg/dL (<0.1-1.0); TOTAL PROTEIN 7.4 g/dL (6.4-8.2)
--- NOTE | 2019-04-19 07:28 | NUR ---
PT IS ABLE TO COMMUNICATE HER NEEDS TO STAFF EFFECTIVELY. SHE HAS DENIED THE NEED FOR PAIN MEDICATION UP TO THIS TIME; SHE HAS DENIED ANY REOCCURANCE OF ABDOMINAL PAIN OVERNIGHT. PART TWO OF STRESS TEST WILL MOST LIKELY BE COMPLETED TODAY WITH POSSIBLE DISCHARGE LATER TODAY.
[2019-04-19 08:00] VITALS: BP 178/90
[2019-04-19 11:34] VITALS: BP 157/98
[2019-04-19 17:09] VITALS: BP 163/113
--- NOTE | 2019-04-19 19:33 | NUR ---
ASSUMED PT CARE AT 0700, VSS, UP AD JORDAN, A&O X4, RA, [employer] TRACING SINUS RHYTHM, FULL ASSESSMENT CHARTED. PT WAS TO DC HOME THIS SHIFT HOWEVER, PHYSICIAN WANTED TO MONITOR PT SHE TRANSITIONED TO DIFFERENT DIET ORDER, PT TOLERATING WELL. HOURLY ROUNDING COMPLETED.
[2019-04-19 20:59] VITALS: BP 183/103
[2019-04-20 00:50] VITALS: BP 145/86
[2019-04-20 04:00] VITALS: BP 162/97
[2019-04-20 05:22] LABS: ABSOLUTE BASOPHILS 0.1 thou/uL (0.0-0.2); ABSOLUTE EOSINOPHILS 0.1 thou/uL (0.0-0.7); ABSOLUTE LYMPHOCYTES 2.7 thou/uL (0.8-5.3); ABSOLUTE MONOCYTES 0.5 thou/uL (0.0-1.2); ABSOLUTE NEUTROPHILS 2.5 thou/uL (1.6-8.1); EOSINOPHILS 2.4 %; HEMATOCRIT 38.8 % (37.0-47.0); HEMOGLOBIN 12.8 gm/dL (12.0-15.0); LYMPHOCYTES 46.2 %; MCH 28.4 pg (26.0-34.0); MONOCYTES 8.5 %; MPV 7.9 fl. (7.2-11.1); NUCLEATED RBCS 0 /100WBC; PLATELET COUNT* 260 thou/uL (150-400); POLYS 41.9 %; RBC 4.51 mil/uL (4.20-5.00); RDW-CV 15.1 % (10.5-14.5); WBC 5.9 thou/uL (4.0-11.0)
[2019-04-20 05:45] LABS: ALBUMIN 3.3 g/dL (3.4-5.0); CALCIUM 8.9 mg/dL (8.5-10.1); POTASSIUM 3.4 mmol/L (3.5-5.1)
--- NOTE | 2019-04-20 07:22 | NUR ---
PT IS ABLE TO COMMUNICATE HER NEEDS TO STAFF EFFECTIVELY. SHE HAS DENIED THE NEED FOR PAIN MEDICATION UP TO THIS TIME. PT DID HAVE DIET ADVANCED LAST NIGHT AND DID NOT HAVE ANY ABD PAIN NOR NAUSEA; ADVANCED TO HEART HEALTHY DIET FOR BREAKFAST TODAY. LIKELY DISCHARGE TODAY.
[2019-04-20 08:15] VITALS: BP 179/112
[2019-04-20] MEDS ORDERED: CARVEDILOL12.5 MG PO (10:22)
[2019-04-20] MEDS ORDERED: PROTONIX40 M4 PO (10:37)
[2019-04-20 10:41] VITALS: BP 179/112
--- NOTE | 2019-04-20 11:49 | NUR ---
DC ORDERS RECEIVED. IV AND MONITOR REMOVED. PT. GIVEN DC INSTRUCTIONS, SCRIPTS, AND CARENOTES. PT. VERBALIZED UNDERSTANDING OF ALL. PT. LEFT VIA WHEELCHAIR TO RETURN HOME IN PERSONAL VEHICLE, ALL BELONGINGS ACCOUNTED FOR.
--- NOTE | 2019-04-22 12:26 | CON ---
[address] [address] CONSULTATION Name: HARJEET GUAMAN Room: [address] M.R.#: [id number] Admission: 04/17/19 Attend Phys: Joaquim Rashid MD Discharge: 04/20/19 Date of : 63 Report #: [id number] THIS REPORT FOR: //name// CC: Mika Castrejon MD DICTATED BY: Charisse De La Cruz [facility] DATE OF SERVICE: 04/18/2019 Please note at the time of this dictation, the patient was seen and physically examined by myself. REASON FOR CONSULTATION: Nausea and vomiting. HISTORY OF PRESENT ILLNESS: This is a 53-year-old female who was recently seen by us for her nausea and vomiting. She underwent an EGD at the end of February that was showing a duodenal ulcer and some gastritis. She then subsequently underwent a laparoscopic cholecystectomy and a liver biopsy was performed by Dr. Addison showing ischemic hepatitis to help us evaluate her liver enzymes further. Her liver enzyme serology workup has all been inconclusive and negative; therefore, that is why the liver biopsy was done with the cholecystectomy, which showed the ischemic hepatitis. Currently, the patient states that she ate a salad. She did not have any nausea or vomiting until the beginning of this week. She states she ate a little bit of a salad and it just did not settle well and she started having some vomiting. She has been noticing that when she has been eating solid food, she feels like it does not want to go down well, that it just feels like it sits in her stomach and then she is not hungry. She states that she gets full a lot quicker than she normally does as well. She states her bowels are working normal, soft and formed. She has been going daily with no evidence of any bright red blood or any melena. She denies taking any NSAIDs at this time. No fever or chills at this time and her abdominal pain has subsided. ALLERGIES: No known drug allergies. MEDICATIONS FROM HOME: See JUL. PAST MEDICAL HISTORY: Hypertension, asthma, insomnia. PAST SURGICAL HISTORY: Hysterectomy, laparoscopic cholecystectomy, liver biopsy at the end of February. FAMILY HISTORY: [place] [address] CONSULTATION Name: HARJEET GUAMAN Room: [address]#: [id number] Admission: 04/17/19 Attend Phys: Joaquim Rashid MD Discharge: 04/20/19 Date of : 63 Report #: [id number] SOCIAL HISTORY: . Denies any alcohol, tobacco or illegal drug use. REVIEW OF SYSTEMS: Twelve-point review of systems is essentially negative except what is mentioned in the HPI. PHYSICAL EXAMINATION: VITAL SIGNS: Temperature 36.7, pulse 118, respirations 18, blood pressure 167/96. HEART: Regular rate and rhythm. LUNGS: Clear. ABDOMEN: Soft, positive bowel sounds in all 4 quadrants with no masses or tenderness noted at this time. LABORATORY DATA: Hemoglobin on admission was 14.2, she is down to 13.3, white count is 10.1, platelets 369. GFR is 57. LFTs; total bilirubin 1.4, alkaline phosphatase is 130, ALT 159, AST is 116 and they are trending down from admission. CT of the abdomen and pelvis was essentially negative. She did have a slight elevation in her troponin and she is awaiting a nuclear stress test later today. IMPRESSION: 1. Nausea and vomiting, improved. 2. Early satiety. 3. Elevated LFTs. Recent liver biopsy showing ischemic hepatitis. 4. Elevated troponin. 5. Family history of breast cancer in sister. PLAN: 1. Can advance to clear liquids and as tolerated once her stress test has been completed. 2. If further nausea and vomiting returns, we will need to consider a gastric emptying test. 3. Continue to monitor her liver function test. 4. CMP in the a.m. Thank you for allowing us to participate in this patient's care. Please do not hesitate to call with any questions in regard to this consult. Agree with above assessment and plan by Charisse De La Cruz. <ELECTRONICALLY SIGNED> By: Jc De Leon MD 04/22/19 1226 1101 [id number] De Leon MD /nt
== END 2019-04-20 11:48 | disposition home or self-care (01) | DRG 441 ==
LOC: M.ERS 10:26 → M.TBA-ER 12:51 → M.2W 12:51 → M.3W 14:30 → M.2W 17:40
PROVIDERS: Family Medicine; Surgery; ADMIT Internal Medicine
DX: K72.00 Acute and subacute hepatic failure without coma (principal); N17.0 Acute kidney failure with tubular necrosis; E86.0 Dehydration; J45.909 Unspecified asthma, uncomplicated; I10 Essential (primary) hypertension; R74.0 Nonspecific elevation of levels of transaminase and lactic acid dehydrogenase [LDH]; K27.9 Peptic ulcer, site unspecified, unspecified as acute or chronic, without hemorrhage or perforation; E87.6 Hypokalemia; E80.6 Other disorders of bilirubin metabolism; I20.8 Other forms of angina pectoris; K29.70 Gastritis, unspecified, without bleeding; Z23 Encounter for immunization; Z79.899 Other long term (current) drug therapy; Z82.49 Family history of ischemic heart disease and other diseases of the circulatory system; Z90.710 Acquired absence of both cervix and uterus; Z80.3 Family history of malignant neoplasm of breast

== ENCOUNTER 2019-05-17 11:51 | Observation (INO) | payer OTHER ==
[~2019-05-17] VITALS: Ht 144.8 cm; Wt 61.2 kg
[~2019-05-17 11:51] MED LIST changes: +CARVEDILOL12.5 MG PO; +PROTONIX40 M4 PO
[2019-05-17 12:04] VITALS: BP 74/49
[2019-05-17] MEDS ORDERED: BREO ELLIPTA 11 EACH (12:08)
[2019-05-17] MEDS ORDERED: AMITRIPTYLINE H25 M4 PO (12:08)
[2019-05-17 12:57] LABS: ABSOLUTE BASOPHILS 0.1 thou/uL (0.0-0.2); ABSOLUTE EOSINOPHILS 0.2 thou/uL (0.0-0.7); ABSOLUTE LYMPHOCYTES 1.3 thou/uL (0.8-5.3); ABSOLUTE MONOCYTES 0.6 thou/uL (0.0-1.2); ABSOLUTE NEUTROPHILS 2.4 thou/uL (1.6-8.1); BASOPHILS 1.2 %; HEMATOCRIT 33.5 % (37.0-47.0); HEMOGLOBIN 11.5 gm/dL (12.0-15.0); MCH 29.4 pg (26.0-34.0); MCHC 34.2 g/dL (28.0-37.0); MCV 85.9 fL (80.0-100.0); MONOCYTES 13.1 %; MPV 9.3 fl. (7.2-11.1); NUCLEATED RBCS 0 /100WBC; PLATELET COUNT* 238 thou/uL (150-400); POLYS 52.7 %; RDW-CV 14.5 % (10.5-14.5); WBC 4.6 thou/uL (4.0-11.0)
[2019-05-17 13:01] LABS: CALCIUM 9.3 mg/dL (8.5-10.1); CREATININE 1.3 mg/dL (0.6-1.3); POTASSIUM 4.7 mmol/L (3.5-5.1)
[2019-05-17 13:06] LABS: ALBUMIN 3.3 g/dL (3.4-5.0); TOTAL BILIRUBIN 0.4 mg/dL (<0.1-1.0); TOTAL PROTEIN 7.1 g/dL (6.4-8.2)
[2019-05-17 14:00] LABS: URINE BILIRUBIN NEGATIVE (Negative); URINE BLOOD NEGATIVE (Negative); URINE CLARITY CLEAR; URINE COLOR YELLOW; URINE GLUCOSE-RANDOM NEGATIVE (Negative); URINE KETONES NEGATIVE (Negative); URINE LEUKOCYTES-REFLEX 1+ (Negative); URINE NITRITE-REFLEX NEGATIVE (Negative); URINE PROTEIN NEGATIVE (Negative); URINE SPECIFIC GRAVITY <= 1.005 (1.005-1.030); URINE UROBILINOGEN 0.2 E.U./dl (0.2-1.0)
[2019-05-17 14:19] LABS: BACTERIA-REFLEX 1-9 Few /HPF (None Seen); CASTS None Seen /LPF (None Seen); CRYSTALS None Seen /LPF (None Seen); SQUAMOUS 0-3 Few /LPF (0-3); URINE RBC 0-2 Rare /HPF (0-2); URINE WBC-REFLEX 0-5 Rare /HPF (0-5)
--- NOTE | 2019-05-17 15:18 | EKG ---
[place] [address] ELECTROCARDIOGRAM REPORT Name: HARJEET GUAMAN Room: [facility]#: [id number] Admission: 05/17/19 Attend Phys: Discharge: Date of : 63 Report #: [id number] THIS REPORT FOR: //name// [facility] ED Test Date: 2019-05-17 Test Time: 12:29:54 Pat Name: HARJEET GUAMAN Department: Room: Gender: F Pool Hand: : 1965 Requested By: Ofelia Allison Order Number: [id number] MD: Robert Jang Measurements Intervals [place] Rate: 48 P: 38 WA: 135 QRS: 31 QRSD: 91 T: 2 QT: 481 QTc: 430 Interpretive Statements Sinus bradycardia Compared to ECG 04/18/2019 01:52:42 Sinus tachycardia no longer present Myocardial infarct finding no longer present Electronically Signed On 05-17-2019 15:18:10 [employer] by Robert Jang [email or web address] <ELECTRONICALLY SIGNED> By: Robert Jang MD, [facility] 05/17/19 1518 1229 1229 Robert Jang MD, FACC /EPI
[2019-05-17 16:51] VITALS: BP 129/69
[2019-05-17 17:00] VITALS: BP 127/72
--- NOTE | 2019-05-17 17:00 | NUR ---
PT TO ROOM FROM ERr, APPEARS ALERT O X 3, DENIES CHEST6 PAIN, SOB, PAIN OR DISCOMFORT, sb IN MONITOR UPPER 50S. PT STATED RECENTLY6 STARTED ON COREG, 2 WEEKS AGO, RX HAS BEEN D/C
[2019-05-18] VITALS: BP 116/66
[2019-05-18 02:10] LABS: HEPATITIS B SURFACE AG Negative (Negative)
[2019-05-18 04:00] VITALS: BP 129/68
--- NOTE | 2019-05-18 06:00 | NUR ---
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
--- NOTE | 2019-05-18 07:20 | NUR ---
CHANGE OF SHIFT BEDSIDE REPORT GIVEN PATIENT SEEN AT BEDSIDE, IN BED RESTING ASSUMED PATIENT CARE NPO STATUS REVIEWED
[2019-05-18 08:00] VITALS: BP 136/76
--- NOTE | 2019-05-18 12:34 | 2DMMODE ---
[place] [address] 2 D/M-MODE ECHOCARDIOGRAM Name: HARJEET GUAMAN Room: [address] [place]#: [id number] Admission: 05/17/19 Attend Phys: Jair Cottrell Discharge: Date of : 63 Date of Service: 05/18/19 1233 Report #: [id number] THIS REPORT FOR: //name// APPROVED REPORT Study performed: 05/17/2019 16:01:35 EXAM: Comprehensive 2D, Doppler, and color-flow Echocardiogram Patient Location: In-Patient Room #: ER Status: routine BSA: 1.45 HR: 49 bpm BP: 123/67 mmHg Rhythm: NSR Other Information Study Quality: Good Indications Bradycardia 2D Dimensions IVSd: 11.58 (7-11mm) LVOT Diam: 19.00 (18-24mm) LVDd: 35.43 mm PWd: 10.25 (7-11mm) Ascending Ao: 29.70 (22-36mm) LVDs: 20.78 (25-40mm) Aortic Root: 27.95 mm Volumes Left Atrial Volume (Systole) LA ESV Index: 27.70 mL/m2 Aortic Valve AoV Peak Hema.: 1.24 m/s AO Peak Gr.: 6.16 mmHg LVOT Max P.89 mmHg AO Mean Gr.: 2.73 mmHg LVOT Mean P.54 mmHg LVOT Max V: 0.85 m/s AO V2 VTI: 24.75 cm LVOT Mean V: 0.58 m/s DARNELL (VTI): 2.55 cm2 LVOT V1 VTI: 22.29 cm Mitral Valve E/A Ratio: 1.14 MV Decel. Time: 188.55 ms MV E Max Hema.: 0.91 m/[place] [address] 2 D/M-MODE ECHOCARDIOGRAM Name: HARJEET GUAMAN Room: [address] M.R.#: [id number] Admission: 05/17/19 Attend Phys: Jair Cottrell Discharge: Date of : 63 Date of Service: 05/18/19 1233 Report #: [id number] MV PHT: 54.68 ms MVA (PHT): 4.02 cm2 TDI E/Lateral E': 9.10 E/Medial E': 10.11 Medial E' Hema.: 0.09 m/s Lateral E' Hema.: 0.10 m/s Pulmonary Valve PV Peak Hema.: 0.75 m/s PV Peak Gr.: 2.28 mmHg Tricuspid Valve RAP Estimate: 5.00 mmHg TR Peak Gr.: 25.60 mmHg RVSP: 31.00 mmHg PA Pressure: 31.00 mmHg Left Ventricle The left ventricle is normal size. There is normal LV segmental wall motion. There is normal left ventricular wall thickness. Left ventricular systolic function is normal. The left ventricular ejection fraction is within the normal range. LVEF is 65%. The left ventricular diastolic function is normal. Right Ventricle The right ventricle is normal size. The right ventricular systolic function is normal. Atria The left atrium size is normal. The right atrium size is normal. Aortic Valve The aortic valve is normal in structure. No aortic regurgitation is present. There is no aortic valvular stenosis. Mitral Valve The mitral valve is normal in structure. Trace mitral regurgitation. No evidence of mitral valve stenosis. Tricuspid Valve The tricuspid valve is normal in structure. Mild tricuspid regurgitation. Mild pulmonary hypertension. Pulmonic Valve The pulmonary valve is normal in structure. Mild [place]monic [place] [address] 2 D/M-MODE ECHOCARDIOGRAM Name: HARJEET GUAMAN Room: [address]#: [id number] Admission: 05/17/19 Attend Phys: Jair Cottrell Discharge: Date of : 63 Date of Service: 05/18/19 1233 Report #: [id number] Great Vessels The aortic root is normal in size. IVC is normal in size and collapses >50% with inspiration. Pericardium There is no pericardial effusion. <Conclusion> LVEF is 65%. The left ventricular diastolic function is normal. The left ventricle is normal size. There is normal left ventricular wall thickness. There is normal LV segmental wall motion. Trace mitral regurgitation. Mild tricuspid regurgitation. Mild pulmonary hypertension. Mild pulmonic regurgitation. <ELECTRONICALLY SIGNED> By: Debora Gilbert MD, FACC 05/18/19 1233 1233 1233 Debora Gilbert MD, FACC /INF
[2019-05-18 12:55] VITALS: BP 136/76
--- NOTE | 2019-05-18 13:12 | NUR ---
PATIENT DISCHARGED TO HOME ALL DISCHARGE INFORMATION GIVEN, ACKNOWLEDGED, SIGNED PAPERWORK GIVEN IV AND HEART MONITOR REMOVED PATIENT ASSISTED OUT VIA WC GOOD CONDITION TO WAITING CAR
== END 2019-05-18 13:20 | disposition home or self-care (01) ==
LOC: M.ERS 11:51 → M.TBA-ER 15:26 → M.2W 15:26
PROVIDERS: Personal Emergency Response Attendant; ADMIT Internal Medicine
DX: R00.1 Bradycardia, unspecified (principal); R55 Syncope and collapse; N39.0 Urinary tract infection, site not specified; E86.0 Dehydration; R11.2 Nausea with vomiting, unspecified; R94.5 Abnormal results of liver function studies; K72.90 Hepatic failure, unspecified without coma; I95.2 Hypotension due to drugs; J45.909 Unspecified asthma, uncomplicated; I10 Essential (primary) hypertension